=== PATIENT | male | born 1935 | race Caucasian/White ===

== ENCOUNTER 2016-12-02 12:03 | Outpatient (CLI) | payer MEDICARE, MEDICAID ==
[2016-12-02 12:37] LABS: ALT (SGPT) 18 U/L (0-55); AST (SGOT) 21 U/L (5-34); Albumin 4.2 g/dL (3.4-4.8); Alkaline Phosphatase 41 U/L (40-150); Anion Gap 18 mmol/L (10-20); BUN (Urea Nitrogen) 16 mg/dL (8.4-25.7); Bilirubin, Total 0.7 mg/dL (0.2-1.2); Calc. Creatinine Clearance 0 mL/min (70-130); Calcium 9.6 mg/dL (7.8-10.44); Carbon Dioxide 26 mmol/L (23-31); Chloride 101 mmol/L (98-107); Estimated GFR-MDRD Greater than 90; Globulin 2.7 g/dL (2.4-3.5); Glucose 94 mg/dL (83-110); Potassium 4.6 mmol/L (3.5-5.1); Protein, Total 6.9 g/dL (5.8-8.1); Sodium 140 mmol/L (136-145)
[2016-12-02 12:53] LABS: Free T4 (Free Thyroxine) 0.77 ng/dL (0.70-1.48); Thyroid Stimulating Hormone 7.1158 uIU/mL (0.35-4.94)
[2016-12-02 13:03] LABS: #Basophils 0.1 thou/uL (0.0-0.2); #Eosinphils 0.1 thou/uL (0.0-0.7); #Lymphocytes 2.3 thou/uL (1.20-3.40); #Monocytes 0.7 thou/uL (0.11-0.59); #Neutrophils 4.1 thou/uL (1.40-6.50); %Basophils 1.1 % (0.0-1.0); %Eosinophils 2.3 % (0.0-10.0); %Lymphocytes 31.8 % (21.0-51.0); %Monocytes 9.6 % (0.0-10.0); %Neutrophils 55.3 % (42.0-75.0); Anisocytosis SLIGHT = 6-15 cells (100X) (0-5/hpf); MDiff Complete? YES; Mean Corpuscular HGB CONC 32.1 g/dL (32.0-36.0); Mean Corpuscular Hemoglobin 35.2 pg (27.0-31.0); Mean Corpuscular Volume 109.8 fl (80.0-94.0); Mean Platelet Volume 7.9 fL (7.4-10.4); PLT Morphology Comment Appears Decreased; Platelet Count 175 thou/uL (130-400); RBC Distribution Width 12.6 % (11.5-14.5); Red Blood Cell (RBC) Count 3.67 mill/uL (4.70-6.10); White Blood Cell (WBC) Count 7.4 thou/uL (4.8-10.8)
== END 2016-12-02 12:04 | disposition home or self-care (01) ==
LOC: MADLABBHPM 12:03
PROVIDERS: ATTEND Family Medicine
DX: E03.9 Hypothyroidism, unspecified (principal)
CPT/HCPCS: 80053; 84439; 84443; 85025

== ENCOUNTER 2016-12-17 22:23 | Emergency (ER) | payer MEDICARE, MEDICAID ==
[2016-12-17] MEDS ORDERED: cefTRIAXone\\ROCEPHIN 1 GM VIAL ONE (22:39)
[2016-12-17] MEDS ORDERED: Lidocaine 1% 20 ML MDV ONE (22:39)
[2016-12-17] MEDS ORDERED: Benzonatate 100 MG CAP ONE (22:51)
== END 2016-12-17 23:37 | disposition home or self-care (01) ==
LOC: MADERS 22:23
DX: J20.9 Acute bronchitis, unspecified (principal); I48.91 Unspecified atrial fibrillation; K21.9 Gastro-esophageal reflux disease without esophagitis; I10 Essential (primary) hypertension; I25.10 Atherosclerotic heart disease of native coronary artery without angina pectoris; E78.5 Hyperlipidemia, unspecified; E78.00 Pure hypercholesterolemia, unspecified; F32.9 Major depressive disorder, single episode, unspecified; F41.9 Anxiety disorder, unspecified; Z79.82 Long term (current) use of aspirin; Z79.899 Other long term (current) drug therapy
CPT/HCPCS: 93005; 94760; 96372; J0696; J2001; J7620

== ENCOUNTER 2016-12-20 12:49 | Inpatient (IN) | payer MEDICARE, MEDICAID ==
[~2016-12-20 12:49] MED LIST: Sodium Chloride 0.9% 1,000 ML BAG ONE
--- NOTE | 2016-12-20 13:59 | RAD ---
SINGLE VIEW OF THE CHEST: INDICATION: Emergency exam. COMPARISON: Prior exam dated 05/17/16. FINDINGS: There is postsurgical change of a prior CABG. There is a dual-lead pacemaker overlying the left zeyad st wall. Heart size is mildly prominent. The pulmonary vasculature is normal-appearing. There are stable chronic interstitial markings likely related to underlying fibrosis. No pleural effusion or pneumothorax is evident. No acute osseous abnormality is evident. IMPRESSION: 1. No acute cardiopulmonary abnormality. 2. Stable mild cardiomegaly. 3. Stable chronic lung changes. POS: CONCHA
[2016-12-20 14:30] LABS: ALT (SGPT) 31 U/L (0-55); AST (SGOT) 47 U/L (5-34); Albumin 3.8 g/dL (3.4-4.8); Alkaline Phosphatase 46 U/L (40-150); Anion Gap 16 mmol/L (10-20); BUN (Urea Nitrogen) 12 mg/dL (8.4-25.7); Bilirubin, Total 0.4 mg/dL (0.2-1.2); Calc. Creatinine Clearance 0 mL/min (70-130); Carbon Dioxide 27 mmol/L (23-31); Chloride 98 mmol/L (98-107); Estimated GFR-MDRD Greater than 90; Globulin 2.8 g/dL (2.4-3.5); Glucose 109 mg/dL (83-110); Lipase 13 U/L (8-78); Potassium 4.3 mmol/L (3.5-5.1); Protein, Total 6.6 g/dL (5.8-8.1); Sodium 137 mmol/L (136-145)
[2016-12-20 14:36] LABS: CKMB 2.8 ng/mL (0-6.6); Hemoglobin 12.5 g/dL (14.0-18.0); Mean Corpuscular HGB CONC 33.7 g/dL (32.0-36.0); Mean Corpuscular Hemoglobin 36.3 pg (27.0-31.0); Mean Corpuscular Volume 107.8 fl (80.0-94.0); Mean Platelet Volume 8.8 fL (7.4-10.4); Platelet Count 130 thou/uL (130-400); RBC Distribution Width 11.8 % (11.5-14.5); Red Blood Cell (RBC) Count 3.45 mill/uL (4.70-6.10); Troponin I Less than 0.010 ng/mL (< 0.028); White Blood Cell (WBC) Count 3.8 thou/uL (4.8-10.8)
[2016-12-20 14:49] LABS: Band 3 % (5-11); Monocytes 10 % (0-10); Reactive Lymphocytes 2 % (0-10)
[2016-12-20 14:50] LABS: Blast 1 % (0-0); Neutrophil 32 % (42-75); Promyelocytes 1 % (0-0)
[2016-12-20 14:51] LABS: Anisocytosis MODERATE=16-30 cells (100X) (0-5/hpf); Lymphocytes 49 % (21-51); Macrocytosis MODERATE=16-30 cells (100X) (0-5/hpf); PLT Morphology Comment Appears Adequate
[2016-12-20 15:09] LABS: Blood, Urine Negative (Negative); Clarity Clear (Clear); Glucose, Urine (Dipstick) Negative (Negative); Leukocyte Negative (Negative); Nitrite Negative (Negative); Protein, Urine (Dipstick) 30 mg/dL (Neg-Trace); Specific Gravity, Urine 1.025 (1.005-1.030); Urobilinogen 0.2 mg/dL (0.2-1.0); pH, Urine 5.5 (5.0-9.0)
[2016-12-20 15:13] LABS: Bilirubin Small (Negative); Icto Negative (Negative)
[2016-12-20 15:30] LABS: Bacteria/HPF Rare-Few HPF (None Seen); Hyaline Casts/LPF 7-10 HYALINE CAST LPF (0-3 Hyaline); RBC/HPF 0-3 HPF (0-3); Renal Epithelial 0-3 HPF (0-3); Transitional Epithelial 0-3 HPF (0-3)
[2016-12-20] MEDS ORDERED: D5 1/2 NS w/20 mEq KCL 1,000 ML IV SCH (18:15)
[2016-12-20] MEDS ORDERED: Lorazepam 1 MG TAB PO PRN (20:46)
[2016-12-20] MEDS ORDERED: Nitroglycerin 0.4 MG TAB (25 Tab Bottle) SL PRN (20:48)
[2016-12-20] MEDS: D5 1/2 NS w/20 mEq KCL 1,000 ML IV SCH (22:20)
[2016-12-20] MEDS: Atorvastatin Calcium 10 MG TAB PO SCH (22:20)
[2016-12-20] MEDS: Montelukast Sodium 10 mg Tablet PO SCH (22:21)
[2016-12-20] MEDS: Fluticasone Propionate Nasal Spray 16 gm Bottle NASAL SCH (22:21)
[2016-12-20] MEDS: Ubidecarenone 50 MG CAP PO SCH (22:21)
[2016-12-20] MEDS: Ondansetron ODT 4 MG TAB PO PRN (22:21)
[2016-12-21] MEDS: D5 1/2 NS w/20 mEq KCL 1,000 ML IV SCH ×2 (03:41→16:38)
[2016-12-21] MEDS: Enoxaparin Sodium 40 MG/0.4 ML SYRINGE SC SCH (05:45)
[2016-12-21] MEDS: Levothyroxine Sodium 25 MCG TAB PO SCH (05:46)
[2016-12-21 07:17] LABS: Anion Gap 14 mmol/L (10-20); BUN (Urea Nitrogen) 7 mg/dL (8.4-25.7); Carbon Dioxide 27 mmol/L (23-31); Chloride 104 mmol/L (98-107); Glucose 109 mg/dL (83-110); Potassium 3.9 mmol/L (3.5-5.1); Sodium 141 mmol/L (136-145)
[2016-12-21 07:38] LABS: Free T4 (Free Thyroxine) 0.95 ng/dL (0.70-1.48)
[2016-12-21 07:39] LABS: White Blood Cell (WBC) Count 3.2 thou/uL (4.8-10.8)
[2016-12-21 07:40] LABS: Manual Diff?? YES; Mean Corpuscular HGB CONC 32.3 g/dL (32.0-36.0); Mean Corpuscular Hemoglobin 35.2 pg (27.0-31.0); Mean Platelet Volume 8.7 fL (7.4-10.4); Platelet Count 122 thou/uL (130-400); RBC Distribution Width 12.2 % (11.5-14.5)
[2016-12-21 07:41] LABS: Band 6 % (5-11); MDiff Complete? YES; Monocytes 18 % (0-10); Neutrophil 43 % (42-75)
[2016-12-21 07:42] LABS: Anisocytosis MODERATE=16-30 cells (100X) (0-5/hpf); Lymphocytes 33 % (21-51); Macrocytosis SLIGHT = 6-15 cells (100X) (0-5/hpf); PLT Morphology Comment Appears Adequate
[2016-12-21 08:16] LABS: Calc. Creatinine Clearance 91 mL/min (70-130); Calcium 8.5 mg/dL (7.8-10.44); Estimated GFR-MDRD Greater than 90
[2016-12-21 08:18] LABS: Thyroid Stimulating Hormone 0.45 uIU/mL (0.35-4.94)
[2016-12-21] MEDS: Ubidecarenone 50 MG CAP PO SCH ×2 (08:52→20:22)
[2016-12-21] MEDS: Aspirin 325 MG TAB PO SCH (08:52)
[2016-12-21] MEDS: Fluticasone Propionate Nasal Spray 16 gm Bottle NASAL SCH ×2 (08:53→20:23)
--- NOTE | 2016-12-21 14:50 | HP ---
ADMITTING PHYSICIAN: Angel Schmid M.D. PRIMARY CARE PHYSICIAN: Angel Schmid M.D. CHIEF COMPLAINT: Generalized weakness, nausea, vomiting for 4-5 days and inability to take p.o. intake with dehydration and worsening shortness of breath , cough and bronchitis. HISTORY OF PRESENT ILLNESS: Mr. Fernandez is an 81-year-old male with past medical history of dyslipidemia, coronary artery disease status post coronary artery bypass graft, hypertension, status post pacemaker, chronic atrial fibrillation, allergic rhinitis, neuropathic pain, insomnia, dysthymic disorder and hypothyroidism, who presents to the emergency room complaining of generalized weakness and inability to take in any p.o. intake for the past 4 days, cough and congestion. The patient was evaluated in the Emergency Department on 12/17, with similar symptoms, body aches and was diagnosed with acute bronchitis and discharged with oral antibiotic and cough medicine. He was also seen at his primary care physician's office a week prior with similar symptoms and given a shot of antibiotic and shot of Depo-Medrol with no improvement. The patient states his symptoms have continued to worsen and now is not been able to take in any oral intake and he has been very weak. He denies any fevers, denies any falls, denies any diarrhea, but complains of some chills. He states his son is also sick at home with similar symptoms. The patient lives in a trailer home with his elderly and his son and daughter, who are taking care of both of them. Upon presentation in the emergency room, per report, the patient looked very pale, weak, tired, and continued to have nausea and vomiting in the ER even after resuscitation with IV fluids and p.r.n. medications, so the decision was made to admit him for further evaluation , IV therapy and possibly follow some physical therapy once medically stable. PAST MEDICAL HISTORY: Coronary artery disease status post coronary artery bypass graft, chronic atrial fibrillation status post pacemaker placement, hypothyroidism, dyslipidemia, gastroesophageal reflux disease, hypertension, insomnia and depression. PAST SURGICAL HISTORY: Pacemaker placement, coronary artery bypass graft x5, appendectomy, hemorrhoid surgery, cholecystectomy and right carotid stenting coronary artery bypass graft. SOCIAL HISTORY: The patient is and lives with his in a trailer home. He uses a walker and a cane to walk around and his daughter and son are highly involved in his care. The patient's is diabetic and he also worries a lot about his . ALLERGIES: PENICILLIN, MACROLIDES, REGLAN, SULFA, IODINE, QUINOLONES, ERYTHROMYCIN, CIPRO and METOCLOPRAMIDE. FAMILY HISTORY: Nonsignificant for any inheritable diseases. REVIEW OF SYSTEMS: Complete review of systems was negative, unless otherwise mentioned in the HPI or below. CONSTITUTIONAL: Weight loss or weight gain. Ability to conduct usual activities. Decreased fevers. Skin rash and itching. EYES: Double vision and pain, mild. ENT: Nose bleeding, neck stiffness, pain and tenderness. CARDIOVASCULAR: Palpitations, dyspnea on exertion and orthopnea. RESPIRATORY: Complains of cough, shortness of breath and chills. GASTROINTESTINAL: Denies abdominal pain. Complains of nausea and vomiting. Denies constipation or diarrhea. GENITOURINARY: Denies urgency, frequency, dysuria or nocturia. MUSCULOSKELETAL: Complains of generalized muscle aches. NEUROLOGIC/PSYCHIATRIC: He has a chronic history of depression and anxiety, but currently stable. ALLERGIC: Skin rash, bleeding and tenderness. MEDICATIONS: Citalopram 40 daily, aspirin 325 daily, vitamin B12 1000 mcg daily , Livalo 4 mg at bedtime, CoQ10 200 two tablets daily, Singulair 10 at bedtime, levothyroxine 50 mcg daily, Singulair 10, Zyrtec 10 at bedtime, fluticasone 1 spray in each naris twice a day, ranitidine 150 b.i.d., lorazepam 1 tablet b.i.d. p.r.n. anxiety, Nitrostat 0.4 mg sublingual as directed and Zofran 4 mg on the tongue 4 times a day p.r.n. nausea. PHYSICAL EXAMINATION: VITAL SIGNS: Temperature 97.2, pulse 85, respirations 20, O2 sat 96% on room air and blood pressure 198/87. GENERAL: The patient appears somewhat pale; otherwise, age appropriate, pleasant, awake, oriented and alert x3. HEENT: Mucous membranes slightly dry. No oropharyngeal exudate, no erythema. HEAD: Normocephalic and atraumatic. Pupils are equal and reactive to light and accommodation. NECK: Supple, without lymphadenopathy, JVD or bruit. CHEST: Clear to auscultation without any wheezing, rales or rhonchi. Pacemaker site without any erythema, induration or swelling. CARDIOVASCULAR: Rate and rhythm is regular, without any murmurs, rubs or gallops. ABDOMEN: Positive bowel sounds, soft, nontender and nondistended. No rebound, no guarding, no rigidity. EXTREMITIES: Free for any cyanosis, clubbing or edema. NEUROLOGICAL: Nonfocal. LABORATORY DATA AND IMAGING STUDIES: EKG stable. WBC 3.8, hemoglobin 12.5, hematocrit 37.2 and platelets 130. Sodium 137, potassium 4.3, chloride 98, carbon dioxide 27, BUN 12, creatinine 0.76, AST 47, ALT 31 and alkaline phosphatase 46. BNP 131.2, troponin less than 0.01 and CK 2.8. Urine; small bili, trace ketones, 30+ protein, squamous epithelial cells and hyaline casts. ASSESSMEN: This is an 81-year-old male with history of coronary artery disease, chronic atrial fibrillation, hypothyroidism, hypertension and dysthymic disorder, who presented with a 2-week history of bronchitis worsening , generalized weakness, nausea, vomiting and inability taking any oral intake. PLAN: The patient will be admitted to the medical floor for dehydration and generalized weakness. We would start the patient on IV fluids. We will monitor closely for any hemodynamic instability. We will advance diet to clear liquid diet as tolerated and advance slowly. We will restart the patient's home medications. We will monitor his symptoms and if he continues to improve with the IV fluids. We will consider physical therapy to evaluate him and get some gait therapy and prior to discharge back to his home. JOSEFA
[2016-12-21] MEDS: Acetaminophen 325 MG TAB PO PRN (20:22)
[2016-12-21] MEDS: Atorvastatin Calcium 10 MG TAB PO SCH (20:22)
[2016-12-21] MEDS: Montelukast Sodium 10 mg Tablet PO SCH (20:38)
[2016-12-22 00:48] VITALS: BMI 24.5
[2016-12-22] MEDS: D5 1/2 NS w/20 mEq KCL 1,000 ML IV SCH ×2 (03:34→13:47)
[2016-12-22] MEDS: Levothyroxine Sodium 25 MCG TAB PO SCH (06:23)
[2016-12-22] MEDS: Enoxaparin Sodium 40 MG/0.4 ML SYRINGE SC SCH (06:24)
[2016-12-22] MEDS: Ubidecarenone 50 MG CAP PO SCH ×2 (08:15→20:40)
[2016-12-22] MEDS: Aspirin 325 MG TAB PO SCH (08:16)
[2016-12-22] MEDS: Fluticasone Propionate Nasal Spray 16 gm Bottle NASAL SCH ×2 (08:16→20:41)
[2016-12-22] MEDS: Acetaminophen 325 MG TAB PO PRN (15:32)
[2016-12-22] MEDS: Atorvastatin Calcium 10 MG TAB PO SCH (20:40)
[2016-12-22] MEDS: Montelukast Sodium 10 mg Tablet PO SCH (20:40)
[2016-12-23] MEDS: Enoxaparin Sodium 40 MG/0.4 ML SYRINGE SC SCH (05:33)
[2016-12-23] MEDS: Levothyroxine Sodium 25 MCG TAB PO SCH (05:34)
[2016-12-23] MEDS ORDERED: D5 1/2 NS w/20 mEq KCL 1,000 ML BAG ONE (06:57)
[2016-12-23] MEDS: Ubidecarenone 50 MG CAP PO SCH (09:02)
[2016-12-23] MEDS: Aspirin 325 MG TAB PO SCH (09:03)
[2016-12-23] MEDS: Fluticasone Propionate Nasal Spray 16 gm Bottle NASAL SCH (09:03)
[2016-12-23] MEDS: Ondansetron ODT 4 MG TAB PO PRN (11:04)
[2016-12-23] MEDS: Acetaminophen 325 MG TAB PO PRN (11:04)
--- NOTE | 2016-12-23 13:41 | RAD ---
TWO VIEWS OF THE CHEST: Date: 12-23-16 Comparison: 12-20-16 History: Coughing, wheezing. FINDINGS: There are increased linear interstitial densities noted bilaterally. The patient is status post mid line sternotomy/CABG. Interstitial prominence appears stable. Midline sternotomy wires are present as is a dual-lead transvenous pacing device. No pneumothorax or pleural fluid. No focal consolida tion or alveolar edema. Cardiac silhouette is mildly enlarged. IMPRESSION: Stable increased linear interstitial density with no focal consolidation or alveolar edema. POS: CON[facility]
[2016-12-23 14:30] VITALS: BP 119/56; TEMP 98.1
== END 2016-12-23 16:02 | DRG 641 ==
LOC: MADERS 12:49 → OBSVTOIN 15:32 → MADMS 15:32
PROVIDERS: ADMIT Family Medicine; ATTEND Family Medicine
DX: E86.0 Dehydration (principal); I48.2 Chronic atrial fibrillation; Z95.1 Presence of aortocoronary bypass graft; R11.2 Nausea with vomiting, unspecified; J20.9 Acute bronchitis, unspecified; I25.10 Atherosclerotic heart disease of native coronary artery without angina pectoris; E03.9 Hypothyroidism, unspecified; I10 Essential (primary) hypertension; F34.1 Dysthymic disorder; E78.5 Hyperlipidemia, unspecified; Z95.0 Presence of cardiac pacemaker; M79.2 Neuralgia and neuritis, unspecified; G47.00 Insomnia, unspecified; K21.9 Gastro-esophageal reflux disease without esophagitis
CPT/HCPCS: 36415; 71010; 71020; 80048; 80053; 81003; 81015; 82553; 83690; 83880; 84439; 84443; 84484; 85025; 93005; 96360; G8978-GP-CI; G8979-GP-CI; J1650; J7050; J7620; Q0162

== ENCOUNTER 2016-12-23 15:27 | Inpatient (IN) | payer MEDICARE, MEDICAID ==
[2016-12-23] MEDS ORDERED: Ondansetron ODT 4 MG TAB PO PRN (16:17)
[2016-12-23] MEDS ORDERED: Acetaminophen 325 MG TAB PO PRN (16:17)
[2016-12-23] MEDS ORDERED: Lorazepam 1 MG TAB PO PRN (16:22)
[2016-12-23] MEDS ORDERED: Nitroglycerin 0.4 MG TAB (25 Tab Bottle) SL PRN (16:22)
[2016-12-23 16:40] VITALS: BMI 24.0
[2016-12-23] MEDS: Atorvastatin Calcium 10 MG TAB PO SCH (20:52)
[2016-12-23] MEDS: Montelukast Sodium 10 mg Tablet PO SCH (20:52)
[2016-12-23] MEDS: Ubidecarenone 50 MG CAP PO SCH (20:53)
[2016-12-23] MEDS: Fluticasone Propionate Nasal Spray 16 gm Bottle NASAL SCH (20:54)
[2016-12-23] MEDS ORDERED: Pantoprazole 40 MG VIAL IVP SCH (21:00)
[2016-12-24] MEDS: Enoxaparin Sodium 40 MG/0.4 ML SYRINGE SC SCH (05:53)
[2016-12-24] MEDS: Levothyroxine Sodium 25 MCG TAB PO SCH (05:53)
[2016-12-24] MEDS ORDERED: Enoxaparin Sodium 40 MG/0.4 ML SYRINGE SC SCH (06:00)
[2016-12-24] MEDS: Aspirin 325 MG TAB PO SCH (08:51)
[2016-12-24] MEDS: Fluticasone Propionate Nasal Spray 16 gm Bottle NASAL SCH ×2 (08:51→20:24)
[2016-12-24] MEDS: Ubidecarenone 50 MG CAP PO SCH ×2 (08:51→20:20)
[2016-12-24] MEDS ORDERED: Cyanocobalamin (Vitamin B-12) 1,000 MCG TAB PO SCH (09:00)
[2016-12-24] MEDS ORDERED: Phenergan/Codeine 10-6.25mg/5ml UDCUP ONE ×2 (10:23→22:12)
[2016-12-24] MEDS: Azithromycin 250 MG TAB PO SCH (10:27)
[2016-12-24] MEDS: Phenergan/Codeine 10-6.25mg/5ml UDCUP PO PRN ×2 (10:27→22:16)
[2016-12-24] MEDS: Acetaminophen 325 MG TAB PO PRN (18:57)
[2016-12-24] MEDS: Montelukast Sodium 10 mg Tablet PO SCH (20:22)
[2016-12-24] MEDS: Atorvastatin Calcium 10 MG TAB PO SCH (20:22)
[2016-12-25] MEDS: Acetaminophen 325 MG TAB PO PRN ×2 (04:04→23:38)
[2016-12-25] MEDS: Levothyroxine Sodium 25 MCG TAB PO SCH (05:37)
[2016-12-25] MEDS: Enoxaparin Sodium 40 MG/0.4 ML SYRINGE SC SCH (05:37)
[2016-12-25] MEDS: Ubidecarenone 50 MG CAP PO SCH ×2 (08:25→20:28)
[2016-12-25] MEDS: Azithromycin 250 MG TAB PO SCH (08:26)
[2016-12-25] MEDS: Fluticasone Propionate Nasal Spray 16 gm Bottle NASAL SCH ×2 (08:26→20:29)
[2016-12-25] MEDS: Aspirin 325 MG TAB PO SCH (08:27)
[2016-12-25] MEDS: Atorvastatin Calcium 10 MG TAB PO SCH (20:27)
[2016-12-25] MEDS: Montelukast Sodium 10 mg Tablet PO SCH (20:29)
[2016-12-25] MEDS ORDERED: Phenergan/Codeine 10-6.25mg/5ml UDCUP ONE (23:30)
[2016-12-25] MEDS: Phenergan/Codeine 10-6.25mg/5ml UDCUP PO PRN (23:37)
[2016-12-26] MEDS: Enoxaparin Sodium 40 MG/0.4 ML SYRINGE SC SCH (05:46)
[2016-12-26] MEDS: Levothyroxine Sodium 25 MCG TAB PO SCH (05:46)
[2016-12-26] MEDS: Ubidecarenone 50 MG CAP PO SCH ×2 (08:16→20:03)
[2016-12-26] MEDS: Aspirin 325 MG TAB PO SCH (08:16)
[2016-12-26] MEDS: Azithromycin 250 MG TAB PO SCH (08:17)
[2016-12-26] MEDS: Fluticasone Propionate Nasal Spray 16 gm Bottle NASAL SCH ×2 (08:17→20:05)
[2016-12-26] MEDS: Montelukast Sodium 10 mg Tablet PO SCH (20:04)
[2016-12-26] MEDS: Atorvastatin Calcium 10 MG TAB PO SCH (20:04)
[2016-12-26] MEDS ORDERED: Cepastat Lozenges 1 LOZ PO PRN (21:37)
[2016-12-27] MEDS: Enoxaparin Sodium 40 MG/0.4 ML SYRINGE SC SCH (05:29)
[2016-12-27] MEDS: Levothyroxine Sodium 25 MCG TAB PO SCH (05:29)
[2016-12-27] MEDS: Ubidecarenone 50 MG CAP PO SCH ×2 (08:44→20:53)
[2016-12-27] MEDS: Azithromycin 250 MG TAB PO SCH (08:45)
[2016-12-27] MEDS: Aspirin 325 MG TAB PO SCH (08:45)
[2016-12-27] MEDS: Acetaminophen 325 MG TAB PO PRN ×2 (08:45→20:53)
[2016-12-27] MEDS: Fluticasone Propionate Nasal Spray 16 gm Bottle NASAL SCH ×2 (08:46→20:52)
[2016-12-27] MEDS: Atorvastatin Calcium 10 MG TAB PO SCH (20:53)
[2016-12-27] MEDS: Montelukast Sodium 10 mg Tablet PO SCH (20:53)
[2016-12-28] MEDS: Levothyroxine Sodium 25 MCG TAB PO SCH (06:04)
[2016-12-28] MEDS: Enoxaparin Sodium 40 MG/0.4 ML SYRINGE SC SCH (06:04)
[2016-12-28 07:42] VITALS: BP 176/81; TEMP 96.2
[2016-12-28] MEDS: Ubidecarenone 50 MG CAP PO SCH (08:23)
[2016-12-28] MEDS: Azithromycin 250 MG TAB PO SCH (08:23)
[2016-12-28] MEDS: Aspirin 325 MG TAB PO SCH (08:24)
[2016-12-28] MEDS: Fluticasone Propionate Nasal Spray 16 gm Bottle NASAL SCH (08:24)
--- NOTE | 2016-12-28 23:50 | DIS ---
DATE OF ADMISSION: 12/20/2016 DATE OF DISCHARGE: 12/28/2016 ADMITTING: Angel Schmid M.D. PRIMARY CARE PHYSICIAN: Angel Schmid M.D. FINAL DIAGNOSES: 1. Generalized weakness. 2. Dehydration. 3. Acute bronchitis. 4. Hypertension. 5. Depression with anxiety. 6. Hypothyroidism. 7. Gastroesophageal reflux disease. 8. Coronary artery disease. 9. Chronic atrial fibrillation status post pacemaker. DISCHARGE MEDICATIONS: 1. Livalo 4mg at bedtime 2. Celexa 40 daily. 3. Levothyroxine 25 daily. 4. Ativan 1 mg b.i.d. p.r.n. 5. Singular 10 mg at bedtime. 6. Aspirin 325 mg daily. 7. Zofran 4 mg q.6 p.r.n. 8. DuoNeb p.r.n. 9. Tylenol p.r.n. 10. Zyrtec 10 mg at bedtime. 11. Fluticasone 1 spray in each nose b.i.d. 12. Nitrostat 0.4 mg sublingual p.r.n. chest pain. 13. CoQ10 200 two tabs daily. DISCHARGE INSTRUCTIONS: Follow up with PCP in 1 week. Continue low salt diet, ambulatory as needed with walker or with fall precautions. BRIEF HOSPITAL COURSE: Mr. Fernandez is an 81-year-old male who is very familiar to me and had presented to the ED and my office multiple times days and weeks prior to admission due to cough, congestion, and treated twice as outpatient until patient presented to the ED on the complaining of cough, congestion, generalized weakness, nausea, vomiting, and decreased oral intake. Due to this patient was admitted for IV fluids and for some physical therapy. The patient was given IV fluids and progressively improved. During hospitalization, he had no episodes of vomiting. He developed bronchitis again and was treated again with azithromycin 500 mg p.o. x5 days and the patient subsequently improved. He was also treated with DuoNeb and patient had complained of some sore throat, he was put on Cepacol lozenges and this helped. During hospitalization, he was noted to be weak and transferred to the [facility] bed for physical therapy. The patient continued to improve with therapy and due to his progress and go ahead from physical therapy, the patient was discharged home in a stable condition. It was advised to follow up with PCP in 1 week. The patient does have home health already at home and they are to resume physical therapy services. THE PATIENT IS A FULL CODE. DISCHARGE VITALS: Temperature 96.2, pulse 86, respirations 15, blood pressure 176/81, O2 sat 97% on room air. MTDD
== END 2016-12-28 13:30 | disposition home or self-care (01) | DRG 948 ==
LOC: MADMS 16:04
PROVIDERS: ADMIT Family Medicine; ATTEND Family Medicine
DX: R53.1 Weakness (principal); E86.0 Dehydration; I48.2 Chronic atrial fibrillation; I10 Essential (primary) hypertension; F32.9 Major depressive disorder, single episode, unspecified; F41.9 Anxiety disorder, unspecified; E03.9 Hypothyroidism, unspecified; J20.9 Acute bronchitis, unspecified; K21.9 Gastro-esophageal reflux disease without esophagitis; I25.10 Atherosclerotic heart disease of native coronary artery without angina pectoris; Z95.0 Presence of cardiac pacemaker; Z95.1 Presence of aortocoronary bypass graft; G47.00 Insomnia, unspecified; Z88.8 Allergy status to other drugs, medicaments and biological substances; Z88.0 Allergy status to penicillin; Z88.2 Allergy status to sulfonamides; Z91.041 Radiographic dye allergy status; J30.9 Allergic rhinitis, unspecified
CPT/HCPCS: G8978-GP-CJ; G8979-GP-CI; J1650; J7620; Q0162

== ENCOUNTER 2018-10-16 17:41 | Emergency (ER) | payer MEDICARE, MEDICAID ==
[2018-10-16 18:30] LABS: #Eosinphils 0.1 thou/uL (0.0-0.7); #Lymphocytes 1.5 thou/uL (1.20-3.40); #Monocytes 0.8 thou/uL (0.11-0.59); #Neutrophils 2.8 thou/uL (1.40-6.50); %Basophils 0.9 % (0.0-1.0); %Eosinophils 2.1 % (0.0-10.0); %Lymphocytes 28.9 % (21.0-51.0); %Monocytes 14.9 % (0.0-10.0); %Neutrophils 53.3 % (42.0-75.0); Anisocytosis SLIGHT = 6-15 cells (100X) (0-5/hpf); Hemoglobin 12.4 g/dL (14.0-18.0); Hypochromia SLIGHT = 6-15 cells (100X) (0-5/hpf); MDiff Complete? YES; Mean Corpuscular HGB CONC 32.6 g/dL (32.0-36.0); Mean Corpuscular Hemoglobin 35.6 pg (27.0-31.0); Mean Corpuscular Volume 109.2 fL (78.0-98.0); Mean Platelet Volume 7.4 fL (7.4-10.4); PLT Morphology Comment Appears Adequate; Platelet Count 157 thou/uL (130-400); RBC Distribution Width 12.6 % (11.5-14.5); Red Blood Cell (RBC) Count 3.49 mill/uL (4.70-6.10); White Blood Cell (WBC) Count 5.3 thou/uL (4.8-10.8)
[2018-10-16 18:37] LABS: ALT (SGPT) 12 U/L (8-55); AST (SGOT) 21 U/L (5-34); Alkaline Phosphatase 41 U/L (40-150); Anion Gap 13 mmol/L (10-20); BUN (Urea Nitrogen) 14 mg/dL (8.4-25.7); Bilirubin, Total 0.6 mg/dL (0.2-1.2); Calc. Creatinine Clearance 0 mL/min (70-130); Calcium 9.5 mg/dL (7.8-10.44); Carbon Dioxide 28 mmol/L (23-31); Chloride 102 mmol/L (98-107); Estimated GFR-MDRD Greater than 90; Glucose 90 mg/dL (83-110); Potassium 3.9 mmol/L (3.5-5.1); Sodium 139 mmol/L (136-145)
[2018-10-16] MEDS ORDERED: Furosemide 20 MG/2 ML VIAL ONE (19:10)
--- NOTE | 2018-10-16 20:00 | RAD ---
CHEST TWO VIEWS: Comparison: 12-23-16 History: Cough. FINDINGS: Re-demonstration of a left sided transvenous pacemaker with leads positioned over the right atrium an d right ventricle. Stable surrounding wires. Stable calcified left mediastinal lymph nodes. Normal ca rdiac silhouette. Pulmonary vessels are slightly prominent. Patchy interstitial opacities are noted. Costophrenic angles are clear. There are three well circumscribed round opacities projecting over the left lung base. Correlate clinically. Lungs are hyperinflated. There is no pneumothorax or osseous a bnormality. IMPRESSION: 1. Vascular prominence, correlate for volume overload. 2. Interstitial prominence, correlate for edema or infiltrate. 3. Three separate well circumscribed densities projecting over the left lung base. Densities are pres umed to be external to the patient. Correlate clinically. POS: CON[facility]
== END 2018-10-16 19:25 | disposition home or self-care (01) ==
LOC: MADERS 17:41
DX: I11.0 Hypertensive heart disease with heart failure (principal); I50.9 Heart failure, unspecified; I48.91 Unspecified atrial fibrillation; K21.9 Gastro-esophageal reflux disease without esophagitis; I25.10 Atherosclerotic heart disease of native coronary artery without angina pectoris; F41.9 Anxiety disorder, unspecified; F32.9 Major depressive disorder, single episode, unspecified; E78.5 Hyperlipidemia, unspecified; Z79.899 Other long term (current) drug therapy
CPT/HCPCS: 71046; 80053; 83880; 84484; 85025; 93005; 96361; 96374; J1940

== ENCOUNTER 2019-01-10 14:25 | Emergency (ER) | payer MEDICARE, MEDICAID ==
[~2019-01-10 14:25] MED LIST changes: -Sodium Chloride 0.9% 1,000 ML BAG ONE; +Sodium Chloride 0.9% 500 ML BAG ONE
[2019-01-10] MEDS ORDERED: Ondansetron PF 4 MG/2 ML Vial ONE (15:12)
[2019-01-10 15:54] LABS: Hemoglobin 11.6 g/dL (14.0-18.0); Mean Corpuscular HGB CONC 31.2 g/dL (32.0-36.0); Mean Corpuscular Hemoglobin 33.5 pg (27.0-31.0); Mean Corpuscular Volume 107.1 fL (78.0-98.0); Mean Platelet Volume 7.4 fL (7.4-10.4); Platelet Count 139 thou/uL (130-400); RBC Distribution Width 13.1 % (11.5-14.5); Red Blood Cell (RBC) Count 3.46 mill/uL (4.70-6.10); White Blood Cell (WBC) Count 5.3 thou/uL (4.8-10.8)
[2019-01-10 16:28] LABS: #Basophils 0.1 thou/uL (0.0-0.2); #Eosinphils 0.1 thou/uL (0.0-0.7); #Lymphocytes 1.5 thou/uL (1.20-3.40); #Monocytes 0.7 thou/uL (0.11-0.59); #Neutrophils 3.1 thou/uL (1.40-6.50); %Eosinophils 1.5 % (0.0-10.0); %Lymphocytes 27.7 % (21.0-51.0); %Monocytes 12.2 % (0.0-10.0); %Neutrophils 57.6 % (42.0-75.0); MDiff Complete? YES; Macrocytosis SLIGHT = 6-15 cells (100X) (0-5/hpf); Platelet Morphology Comment Appears Adequate
[2019-01-10 16:33] LABS: ALT (SGPT) 15 U/L (8-55); AST (SGOT) 30 U/L (5-34); Albumin 3.9 g/dL (3.4-4.8); Alkaline Phosphatase 38 U/L (40-150); Anion Gap 13 mmol/L (10-20); BUN (Urea Nitrogen) 17 mg/dL (8.4-25.7); Bilirubin, Total 0.4 mg/dL (0.2-1.2); Calc. Creatinine Clearance 0 mL/min (70-130); Calcium 9.4 mg/dL (7.8-10.44); Carbon Dioxide 30 mmol/L (23-31); Chloride 103 mmol/L (98-107); Estimated GFR-MDRD 77; Globulin 3.4 g/dL (2.4-3.5); Glucose 100 mg/dL (83-110); Lipase 19 U/L (8-78); Potassium 4.8 mmol/L (3.5-5.1); Protein, Total 7.3 g/dL (5.8-8.1); Sodium 141 mmol/L (136-145)
== END 2019-01-10 16:50 | disposition home or self-care (01) ==
LOC: MADERS 14:25
DX: K52.9 Noninfective gastroenteritis and colitis, unspecified (principal); E86.0 Dehydration; I48.91 Unspecified atrial fibrillation; K21.9 Gastro-esophageal reflux disease without esophagitis; I10 Essential (primary) hypertension; I25.10 Atherosclerotic heart disease of native coronary artery without angina pectoris; E78.5 Hyperlipidemia, unspecified; Z79.899 Other long term (current) drug therapy; Z79.891 Long term (current) use of opiate analgesic
CPT/HCPCS: 80053; 83605; 83690; 85025; 96361; 96374; J2405; J7050

== ENCOUNTER 2019-03-15 15:14 | Emergency (ER) | payer MEDICARE, MEDICAID ==
--- NOTE | 2019-03-15 15:48 | CT ---
CT BRAIN WITHOUT CONTRAST: HISTORY:Syncope COMPARISON:05/17/2016 FINDINGS: Cortical atrophy is again seen. There are foci of decreased attenuation in the periventricular white matter, consistent with chronic small vessel ischemic disease. No evidence of acute infarct, hemorrhage, midline shift or abnormal extra-axial fluid collections is seen. The ventricular size is appropriate and the basilar cisterns are patent. The bony calvarium is intact. The visualized paranasal sinuses and mastoid air cells are well aerated. IMPRESSION: No CT evidence of acute intracranial process.
[2019-03-15 15:54] LABS: ALT (SGPT) Less than 7 U/L (8-55); AST (SGOT) 15 U/L (5-34); Alkaline Phosphatase 41 U/L (40-150); Anion Gap 12 mmol/L (10-20); BUN (Urea Nitrogen) 17 mg/dL (8.4-25.7); Bilirubin, Total 0.6 mg/dL (0.2-1.2); Calc. Creatinine Clearance 0 mL/min (70-130); Calcium 9.2 mg/dL (7.8-10.44); Carbon Dioxide 29 mmol/L (23-31); Chloride 100 mmol/L (98-107); Estimated GFR-MDRD 69; Globulin 3.1 g/dL (2.4-3.5); Glucose 104 mg/dL (83-110); Potassium 3.8 mmol/L (3.5-5.1); Protein, Total 7.1 g/dL (5.8-8.1); Sodium 137 mmol/L (136-145)
--- NOTE | 2019-03-15 15:54 | CT ---
Exam: CT cervical spine without contrast HISTORY: Trauma. Pain. COMPARISON: None FINDINGS: No craniocervical dissociation. Appropriate alignment of the lateral masses of C1 and C2. Intact odon toid process Appropriate alignment of the facets. Soft tissue neck structures: No mass, lymphadenopathy or hematoma. No prevertebral soft tissue swelli ng. Upper mediastinum and lung apices: Unremarkable Central spinal canal: Varying degrees of significant central canal stenosis and neural foraminal narr owing, on the basis of degenerative change. Evaluation is limited by technique Vertebral bodies: Cervical spine vertebral body height is maintained. No fracture. Osteopenic changes are once again noted. IMPRESSION: No evidence of fracture.
--- NOTE | 2019-03-15 15:55 | RAD ---
XR Chest 1 View Portable HISTORY: Syncope COMPARISON: 12/20/2016 FINDINGS: The heart size is normal. The lungs are well expanded without focal areas of consolidation, pneumothorax or pleural effusions. Changes of median sternotomy and left-sided pacemaker device are again seen IMPRESSION: No radiographic evidence of acute cardiopulmonary process.
[2019-03-15 16:10] LABS: #Basophils 0.1 thou/uL (0.0-0.2); #Eosinphils 0.1 thou/uL (0.0-0.7); #Lymphocytes 1.7 thou/uL (1.20-3.40); #Monocytes 0.6 thou/uL (0.11-0.59); #Neutrophils 2.8 thou/uL (1.40-6.50); %Basophils 1.1 % (0.0-1.0); %Eosinophils 1.6 % (0.0-10.0); %Lymphocytes 32.4 % (21.0-51.0); %Monocytes 11.7 % (0.0-10.0); %Neutrophils 53.2 % (42.0-75.0); Hemoglobin 12.3 g/dL (14.0-18.0); Mean Corpuscular HGB CONC 31.6 g/dL (32.0-36.0); Mean Corpuscular Hemoglobin 33.9 pg (27.0-31.0); Mean Corpuscular Volume 107.3 fL (78.0-98.0); Mean Platelet Volume 7.8 fL (7.4-10.4); Platelet Count 133 thou/uL (130-400); RBC Distribution Width 13.6 % (11.5-14.5); Red Blood Cell (RBC) Count 3.62 mill/uL (4.70-6.10); White Blood Cell (WBC) Count 5.2 thou/uL (4.8-10.8)
== END 2019-03-15 17:45 | disposition home or self-care (01) ==
LOC: MADERS 15:14
DX: S01.311A Laceration without foreign body of right ear, initial encounter (principal); R55 Syncope and collapse; I48.91 Unspecified atrial fibrillation; K21.9 Gastro-esophageal reflux disease without esophagitis; E78.5 Hyperlipidemia, unspecified; I25.10 Atherosclerotic heart disease of native coronary artery without angina pectoris; I10 Essential (primary) hypertension; I44.7 Left bundle-branch block, unspecified; I25.2 Old myocardial infarction; F41.9 Anxiety disorder, unspecified; F32.9 Major depressive disorder, single episode, unspecified; Z79.82 Long term (current) use of aspirin; Z79.899 Other long term (current) drug therapy; W01.198A Fall on same level from slipping, tripping and stumbling with subsequent striking against other object, initial encounter; Y92.002 Bathroom of unspecified non-institutional (private) residence as the place of occurrence of the external cause
CPT/HCPCS: 12011; 70450; 71045; 72125; 80053; 83880; 84484; 85025; 93005; 94760

== ENCOUNTER 2019-08-23 15:56 | Emergency (ER) | payer MEDICARE, MEDICAID ==
--- NOTE | 2019-08-23 17:06 | CT ---
EXAM: CT brain without contrast HISTORY: Ground-level fall and hit head with head trauma/headache COMPARISON: 03/15/2019 TECHNIQUE: Multiple contiguous axial images were obtained and a CT of the brain without contrast. FINDINGS: There are subtle stable scattered hypodensities in the subcortical and periventricular whit e matter consistent with small vessel ischemic disease. There is no evidence of hydrocephalus, intracranial hemorrhage, or extra-axial fluid collection. The calvarium and overlying soft tissues are unremarkable. The visualized paranasal sinuses and masto id air cells are well aerated. IMPRESSION: No evidence of acute intracranial abnormality
--- NOTE | 2019-08-23 17:18 | CT ---
EXAM: CT of the lumbar spine without contrast HISTORY: Low back pain after ground-level fall COMPARISON: None TECHNIQUE: Multiple contiguous axial images were obtained in a CT of the lumbar spine without contras t. Sagittal and coronal reformats were performed. FINDINGS: The vertebral bodies and intervertebral discs demonstrate normal height and alignment witho ut fracture or subluxation. . Mild degenerative changes are present. Disc osteophyte complexes in the lower lumbosacral spine narrowing of the neural foramina mildly. Atherosclerotic calcifications are seen in the aorta. A hypodensity emanating from the left kidney l ikely represents cyst. The patient is status post cholecystectomy.. The prevertebral and paraspinal soft tissues are otherwise unremarkable. IMPRESSION: No evidence of acute osseous abnormality of the lumbar spine.
--- NOTE | 2019-08-23 17:29 | RAD ---
EXAM: 3 views of the right shoulder HISTORY: Shoulder pain after fall COMPARISON: None FINDINGS: There is no evidence of acute fracture or dislocation. No degenerative changes are present. No soft tissue swelling is seen. The visualized thorax is unremarkable. IMPRESSION: No evidence of acute osseous abnormality.
[2019-08-23] MEDS ORDERED: Morphine 2 MG/ML SYRINGE ONE (17:47)
== END 2019-08-23 17:56 | disposition home or self-care (01) ==
LOC: MADERS 15:56
DX: S43.401A Unspecified sprain of right shoulder joint, initial encounter (principal); S33.5XXA Sprain of ligaments of lumbar spine, initial encounter; I48.91 Unspecified atrial fibrillation; K21.9 Gastro-esophageal reflux disease without esophagitis; E78.5 Hyperlipidemia, unspecified; E78.00 Pure hypercholesterolemia, unspecified; I10 Essential (primary) hypertension; F32.9 Major depressive disorder, single episode, unspecified; F41.9 Anxiety disorder, unspecified; Z79.899 Other long term (current) drug therapy; Z79.82 Long term (current) use of aspirin; W18.30XA Fall on same level, unspecified, initial encounter
CPT/HCPCS: 70450; 72131; 96372; J2270

== ENCOUNTER 2020-07-26 16:17 | Emergency (ER) | payer MEDICARE, MEDICAID ==
--- NOTE | 2020-07-26 17:05 | RAD ---
XR Chest 1 View Portable History: Dyspnea Comparison: Radiograph 2019 Findings: Heart size mildly enlarged. Mild pulmonary edema. Small effusions. No pneumothorax. Dual-lead pacer is similar. Multiple midline sternotomy wires and mediastinal surgical clips. Impression: Mild decompensated congestive heart failure.
[2020-07-26 17:28] LABS: #Eosinphils 0.1 thou/uL (0.0-0.7); #Monocytes 0.6 thou/uL (0.11-0.59); #Neutrophils 2.7 thou/uL (1.40-6.50); %Eosinophils 2.1 % (0.0-10.0); %Lymphocytes 22.4 % (21.0-51.0); %Monocytes 14.2 % (0.0-10.0); %Neutrophils 60.2 % (42.0-75.0); Hemoglobin 11.6 g/dL (14.0-18.0); MDiff Complete? YES; Macrocytosis SLIGHT = 6-15 cells (100X) (0-5/hpf); Mean Corpuscular Hemoglobin 34.7 pg (27.0-31.0); Mean Corpuscular Volume 105.3 fL (78.0-98.0); Mean Platelet Volume 6.2 fL (7.4-10.4); Platelet Count 192 thou/uL (130-400); RBC Distribution Width 13.9 % (11.5-14.5); Red Blood Cell (RBC) Count 3.34 mill/uL (4.70-6.10); White Blood Cell (WBC) Count 4.5 thou/uL (4.8-10.8)
[2020-07-26 17:32] LABS: ALT (SGPT) 12 U/L (8-55); AST (SGOT) 20 U/L (5-34); Albumin 3.8 g/dL (3.4-4.8); Alkaline Phosphatase 45 U/L (40-110); Anion Gap 16 mmol/L (10-20); BUN (Urea Nitrogen) 10 mg/dL (8.4-25.7); Bilirubin, Total 1.1 mg/dL (0.2-1.2); Calc. Creatinine Clearance 0 mL/min (70-130); Calcium 8.7 mg/dL (7.8-10.44); Carbon Dioxide 28 mmol/L (23-31); Chloride 98 mmol/L (98-107); Estimated GFR-MDRD 79; Glucose 106 mg/dL (83-110); Potassium 3.7 mmol/L (3.5-5.1); Protein, Total 6.8 g/dL (5.8-8.1); Sodium 138 mmol/L (136-145)
[2020-07-26] MEDS ORDERED: Furosemide 40 MG/4 ML VIAL ONE (17:42)
[2020-07-26] MEDS ORDERED: Nitroglycerin 0.4 MG TAB 1 EACH ONE ×3 (17:42→17:45)
[2020-07-26] MEDS ORDERED: Nitroglycerin 2% Ointment 1 INCH/1 GM Packet ONE (17:42)
== END 2020-07-26 19:34 | disposition short-term general hospital (02) ==
LOC: MADERS 16:17
DX: I11.0 Hypertensive heart disease with heart failure (principal); I50.9 Heart failure, unspecified; I48.91 Unspecified atrial fibrillation; K21.9 Gastro-esophageal reflux disease without esophagitis; E78.5 Hyperlipidemia, unspecified; F41.9 Anxiety disorder, unspecified; F32.9 Major depressive disorder, single episode, unspecified; Z87.891 Personal history of nicotine dependence; Z79.899 Other long term (current) drug therapy
CPT/HCPCS: 71045; 80053; 83880; 84484; 85025; 93005; 96374; J1940